=== PATIENT | female | born 1995 | race Caucasian/White ===

== ENCOUNTER 2016-11-12 23:42 | Emergency (ER) | payer OTHER ==
--- NOTE | ~2016-11-12 | CR141 ---
[facility] A Service of [facility] & [facility] / [facility] RADIOLOGY TEXT RESULTS PATIENT: ARIS CARRASCO LOCATION: CFTX : 95 UNIT #: [id number] AGE: [address]: COLE DEWITT APRN SEX: F ORDER DR: [id number] [facility] [address] [place], [place] [address] [id number] MR#: [id number] Acc #: [id number] NAME: ARIS CARRASCO : 1995 SEX: F STUDY DATE/TIME: 11/13/2016 00:04 UNIT: TX ROOM: STUDY DESCRIPTION: CR Hand Min 3 Views Lt Attending Physician: Cole Dewitt Aprn Ordering Physician: Ed Carlo Patel M.D. Primary Care Physician: Primary Care Physician No MEDICAL IMAGING REPORT This report is preliminary unless electronic signature is present EXAM Left hand 11/13/2016 at 00:04 INDICATIONS First digit pain tonight after catching finger between grocery carts. FINDINGS AP, lateral, and oblique projections of the hand show good mineralization with normal carpal, metacarpal, and phalangeal anatomy without indication of fracture, dislocation, or soft tissue radiopaque foreign body. IMPRESSION Normal hand. Dictated by... Diony Jean Jr., M.D. THIS IS AN ELECTRONICALLY VERIFIED REPORT Diony Jean Jr., M.D. at 11/13/2016 6:02 AM ANGIE/cassandra TD: 11/13/2016 04:43 JOB #: [id number] MEDICAL IMAGING REPORT Page 1 of 1 COPY
[~2016-11-12 23:42] MED LIST: BACITRACIN OP3.5 GM OD; DICLOFENAC PO; NO MEDICATIONS
== END 2016-11-13 03:00 | disposition home or self-care (01) ==
LOC: CFTX 23:42 → CED 23:42 → CFTX 23:59
DX: S63.602A Unspecified sprain of left thumb, initial encounter (principal); S60.512A Abrasion of left hand, initial encounter; Z23 Encounter for immunization; Z88.0 Allergy status to penicillin; W23.0XXA Caught, crushed, jammed, or pinched between moving objects, initial encounter; Y92.89 Other specified places as the place of occurrence of the external cause
CPT/HCPCS: 29125; 73130; 90471; 90715; 99283